=== PATIENT | male | born 1945 | race Caucasian/White ===

== ENCOUNTER 2024-01-24 07:16 | Observation (INO) | payer MEDICARE, SELFPAY ==
[2024-01-24] VITALS (26 sets, daily range): BP systolic 96–129; BP diastolic 51–79; PULSE 49–72; RESP 11–21; TEMP 36.6–36.9; O2SAT 63–99; BMI 23.4
--- NOTE | ~2024-01-24 | US_ITS ---
EXAMINATION: US carotid duplex BI DATE: 01/24/2024 11:41 INDICATION: Syncope. TECHNIQUE: Grayscale, color Doppler, and pulsed Doppler images of the cervical carotid arteries were obtained. The degree of vessel stenosis is placed in one of the following categories: normal, <50%, 5 0-69%, >=70% but less than near-occlusion, near-occlusion, or total occlusion. Note that percent sten osis relative to normal distal artery lumen diameter is indirectly measured from velocity measurement s as described by Andrew, et al. Radiology 2003; 229:340-346. COMPARISON: None. FINDINGS: RIGHT: The right common carotid artery (CCA) peak systolic velocity (PSV) is 106 cm/s. The right internal ca rotid artery (ICA) PSV is 62 cm/s. The right ICA end-diastolic velocity (EDV) is 8 cm/s. The right IC A/CCA PSV ratio is 0.6. Grayscale and color Doppler images yield an estimate of <50% diameter reducti on from plaque in the ICA. There is antegrade flow in the right vertebral artery. LEFT: The left CCA PSV is 58 cm/s. The left ICA PSV is 65 cm/s. The left ICA EDV is 17 cm/s. The left ICA/C CA PSV ratio is 1.1. Grayscale and color Doppler images yield an estimate of <50% diameter reduction from plaque in the ICA. There is antegrade flow in the left vertebral artery. IMPRESSION: 1. <50% stenosis in the right internal carotid artery. 2. <50% stenosis in the left internal carotid artery. Reviewed, dictated and finalized at location A.
--- NOTE | ~2024-01-24 | CT_ITS ---
CT head without contrast Indication: Status post fall Technique: Serial scans were obtained through the brain without the administration of contrast. Dose reduction technique was used on this scan by utilizing automated exposure control and iterative recon struction technique. The dose-length product (DLP) was 605.33 mGy-cm. Findings: There is no evidence of intracranial hemorrhage, mass lesion, or acute infarct. The ventri cles and subarachnoid spaces are dilated, consistent with mild atrophy. Chronic posterior right parie lana lobe infarct noted. There is no evidence of edema, mass effect or midline shift. The visualized paranasal sinuses and mastoid air cells are clear. Impression: No intracranial hemorrhage, mass, or acute infarct. Chronic posterior right parietal lobe infarct. Mild generalized atrophy. Reviewed, dictated and finalized at location . Impression: No intracranial hemorrhage, mass, or acute infarct. Chronic posterior right parietal lobe infarct. Mild generalized atrophy.
--- NOTE | ~2024-01-24 | CT_ITS ---
Noncontrast CT scan of the cervical spine Technique: Multiple contiguous axial [address] images of the cervical spine were obtained and rec onstructed in 2D sagittal and coronal planes on the acquisition scanner. Dose reduction technique was used on this scan by utilizing automated exposure control, adjustment of the mA and/or kV according to patient size. The dose-length product (DLP) was 229.17 mGy-cm. Clinical History: Pain Findings: No fractures or dislocations. There is straightening of normal cervical lordosis. There is moderate to advanced degenerative disc change throughout the cervical spine, especially at C5-C6 and C6-C7. There is disc osteophyte complex at C5-C6 with probable mild to possibly moderate canal steno sis. There is mild bilateral neural foraminal narrowing at this level. There is disc osteophyte compl ex at C6-C7 with moderate canal stenosis and bilateral neural foraminal narrowing. Advanced emphysema noted at the lung apices. No prevertebral soft tissue swelling. Impression: No fracture or subluxation of the cervical spine. Advanced degenerative spondylosis, as above, especially at C5-C6 and C6-C7. Reviewed, dictated and finalized at [facility]. Impression: No fracture or subluxation of the cervical spine. Advanced degenerative spondylosis, as above, especially at C5-C6 and C6-C7.
--- NOTE | 2024-01-24 07:20 | ECG_ITS ---
[facility] [address] Test Date: 2024-01-24 Pat Name: Mati Wyatt Department: Room: Gender: M Staff Trainer: MILDRED : 1945 Requested By: Jah Muñoz Order Number: [id number] Antonio MD: Amrita Walker M.D. Measurements Intervals [place] Rate: 48 P: 25 W[place]: 174 QRS: 97 QRSD: 137 T: 52 QT: 487 QTc: 438 Interpretive Statements SINUS BRADYCARDIA RIGHT BUNDLE BRANCH BLOCK [120+ ms QRS DURATION, UPRIGHT V1, 40+ ms S IN I/aVL/V4/V5/V6] No previous ECG available for comparison Electronically Signed On 01-24-2024 13:43:14 CDT by Amrita Walker M.D.
[2024-01-24 07:37] LABS: Basophils Absolute Auto 0.1 K/mm3 (0.0-0.1); Basophils Percent Auto 0.9 % (0.2-1.2); Eosinophils Absolute Auto 0.2 K/mm3 (0-0.3); Eosinophils Percent Auto 4.3 % (0-4.4); Hematocrit 41.4 % (42.0-52.0); Immature Granulocyte Absolute 0.03 K/mm3 (0.00-0.031); Immature Granulocyte Percent A 0.5 % (0-0.5); Lymphocytes Absolute Auto 1.17 K/mm3 (0.9-3.2); Lymphocytes Percent Auto 20.9 % (18.3-44.2); Mean Corpuscular HGB Conc 31.4 g/dl (32-36); Mean Corpuscular Hemoglobin 33.7 pg (26-34); Mean Corpuscular Volume 107.3 fl (80-100); Mean Platelet Volume 9.3 fl (7.4-10.4); Monocytes Absolute Auto 0.8 K/mm3 (0.1-0.6); Neutrophils Absolute Auto 3.3 K/mm3 (1.3-6.7); Neutrophils Percent Auto 58.4 % (45.5-73.1); Platelet Count Result 208 k/mm3 (150-375); Red Blood Count 3.86 M/mm3 (4.6-6.20); Red Cell Distribution Width 13.2 % (11.5-14.5); White Blood Count 5.6 K/mm3 (4.5-10.0)
--- NOTE | 2024-01-24 07:38 | ED.SYNCOPE ---
HPI - Syncope General Chief Complaint: Syncope Stated Complaint: fall, head injury, syncope Time Seen by Provider: 01/24/24 07:35 History of Present Illness HPI narrative: Pt had two syncopal episodes this morning when he stood up. First time the patient fell and hit head and sustained a laceration to the back of his head. Pt denies RASHEED or neck pain. Pt has been eating and drinking and denies melena or bloody stools. Pt has been on chemo and radiation now just chemo for Related Data Home Medications Medication Instructions Recorded Confirmed lisinopril 10 mg tablet 10 mg PO 1800 09/12/19 01/24/24 paroxetine HCl 10 mg tablet 10 mg PO 1800 09/12/19 01/24/24 pravastatin 80 mg tablet 80 mg PO 1800 09/12/19 01/24/24 rivaroxaban 20 mg tablet (Xarelto) 20 mg PO 1800 09/12/19 01/24/24 B12 1,000 mg [facility] 1XD 10/30/23 01/24/24 D3 1,[address] [facility] 1XD 10/30/23 01/24/24 donepezil 5 mg tablet 5 mg PO QHS 10/30/23 01/24/24 omega-3 900 mg-dha 360 mg-epa 455 1 cap PO 1800 10/30/23 01/24/24 mg-fish oil 1,000 mg capsule (Fish Oil) Allergies Allergy/AdvReac Type Severity Reaction Status Date / Time No Known Allergies Allergy Mild Verified 01/24/24 10:37 Review of Systems Review of Systems: All systems reviewed & are unremarkable except as noted in HPI and below PMFSH Past Medical History Medical History (Updated 01/24/24 @ 09:51 by Harmony Arteaga MD) Cancer of right lung CKD (chronic kidney disease) COPD (chronic obstructive pulmonary disease) Dementia History of blood clots Hyperlipidemia Hypertension Hypothyroidism Pulmonary embolus Throat cancer TIA (transient ischemic attack) Surgical History Surgical History (Updated 10/30/23 @ 10:15 by Frida Abarca MA) History of eye surgery Hx of tonsillectomy Total knee replacement status Family History Family History (Updated 10/30/23 @ 10:02 by Frida Abarca MA) Sibling Carcinoma of colon Social History Social History (Updated 10/30/23 @ 10:19 by JOSSY Driscoll Smoking packs per day: 1 Smoking cigarettes per day: 20.0 Years smoked: 15 Smoking pack-years: 15.00 Smoking status: Former smoker Alcohol intake: never Substance use: current Substance use type: marijuana Other substance usage details: relaxation - pain control - is working Last use: daily Do You Feel Safe in your Home?: Yes Lack of Transportation: No Lack of Food: Never True Current Housing: I Have Housing Concerned About Future Housing: No Difficulty Paying Gas/Electric Bills: No Difficulty Paying for Meds: No Currently Unemployed: No Education: Bachelor's Degree Living arrangements: with family Occupation/Education: retired Gender identity (if verbalized by the patient): Male Sexual Orientation (if Verbalized by the Patient): Straight or Heterosexual Exam Const: General: healthy appearing and no acute distress Nutritional Appearance: thin Orientation/consciousness: patient oriented x3 Limitations: no limitations HENMT: Head: laceration (posterior scalp 7 cm) Neck: Neck: normal visual inspection and no meningeal signs Resp: Effort & Inspection: normal respiratory effort Auscultation: clear to auscultation bilaterally Cardio: Rate: regular rate Rhythm: regular rhythm GI: GI Palp: Yes Soft to palpation and No Tenderness to palpation present (GI) Auscultation: normal bowel sounds Skin: General skin exam: normal color Rashes: no rashes Wounds: no wounds Neuro: General: patient oriented x3, moves all extremities, no meningeal signs and no focal motor deficits Cranial nerves: Yes Nystagmus not present Speech: normal speech Extrem: General: normal to inspection and no clubbing, cyanosis or edema Psych: Mental Status: mental status grossly normal Affect: normal affect Attitude: cooperative Course Vital Signs Vital signs: Vital Signs Temperature 98.4 F 01/24/24 07:15 Temperature 98.4 F 06/0
[2024-01-24 07:43] LABS: Alanine Aminotransferase 13 U/L (6-50); Albumin Level 3.8 g/dL (3.5-5.1); Alkaline Phosphatase 86 U/L (38-126); Anion Gap 6 mmol/L (4-12); Aspartate Amino Transferase 19 U/L (17-59); Bilirubin,Total 0.8 mg/dL (0.2-1.3); Blood Urea Nitrogen 29 mg/dL (9-20); Calcium 9.4 mg/dL (8.4-10.2); Carbon Dioxide 29 mmol/L (22-30); Chloride 100 mmol/L (98-107); Estimated CRCL calculation 37 ml/min; Estimated Glomerular Filt Rate 46; Glucose 149 mg/dL (65-110); Potassium 3.6 mmol/L (3.4-5.0); Sodium 135 mmol/L (137-145)
[2024-01-24 07:58] LABS: Anisocytosis 1+; Platelet Estimate Adequate (Adequate); Poikilocytosis 1+; Schistocytes None Seen
[2024-01-24] MEDS: TETANUS,DIPHTHERIA,AC PERTUSSIS ADULT (0.5 ML) BOOSTRIX IM (08:05)
[2024-01-24] MEDS: SODIUM CHLORIDE 0.9% IV 1,000 ML 999 ML IV CONT (08:06)
--- NOTE | 2024-01-24 09:41 | PM.IMHP ---
H&P: HPI History of Present Illness Date/Time: 01/24/24 09:41 Chief Complaint: SYNCOPE Narrative: 78 years old gentleman with history of hypertension, hyperlipidemia, PE, hypothyroidism, COPD, CKD, lung cancer, brought to ED because of syncope. In the morning, patient stood up, patient felt dizzy and lost consciousness. Patient fell on floor, hit his head, sustained scalp laceration back off his head. Patient had chemo radiotherapy for lung cancer about a year ago. patient denied nausea vomiting diarrhea dysuria, Fever. chills.Upon arrival in ED, patient was afebrile, pulse ox 96 on room air, blood pressure stable, CBC showed mild anemia hemoglobin 13, chemistry shows elevated BUN creatinine 29/1.5, no known recent baseline CT head shows no intracranial hemorrhage, mass, acute infarct. Patient received fluid resuscitation in the ED. Admit patient for further evaluation treatment Review of Systems Review of Systems: ROS negative except above PMFSH Past Medical History Medical History (Updated 01/24/24 @ 09:51 by Harmony Arteaga MD) Cancer of right lung CKD (chronic kidney disease) COPD (chronic obstructive pulmonary disease) Dementia History of blood clots Hyperlipidemia Hypertension Hypothyroidism Pulmonary embolus Throat cancer TIA (transient ischemic attack) Surgical History Surgical History (Updated 10/30/23 @ 10:15 by Frida Abarca MA) History of eye surgery Hx of tonsillectomy Total knee replacement status Family History Family History (Updated 10/30/23 @ 10:02 by Frida Abarca MA) Sibling Carcinoma of colon Social History Social History (Updated 10/30/23 @ 10:19 by Frida Abarca MA) Smoking packs per day: 1 Smoking cigarettes per day: 20.0 Years smoked: 15 Smoking pack-years: 15.00 Smoking status: Former smoker Alcohol intake: never Substance use: current Substance use type: marijuana Other substance usage details: relaxation - pain control - is working Last use: daily Do You Feel Safe in your Home?: Yes Lack of Transportation: No Lack of Food: Never True Current Housing: I Have Housing Concerned About Future Housing: No Difficulty Paying Gas/Electric Bills: No Difficulty Paying for Meds: No Currently Unemployed: No Education: Bachelor's Degree Difficulty w/ Childcare or Family Care: No Living arrangements: with family Occupation/Education: retired Gender identity (if verbalized by the patient): Male Sexual Orientation (if Verbalized by the Patient): Straight or Heterosexual Spiritual care concerns: No Meds Home Medications and Allergies Home Medications Medication Instructions Recorded Confirmed Type lisinopril 10 mg tablet 10 mg PO 179909/12/19 01/24/24 History paroxetine HCl 10 mg tablet 10 mg PO 1800 09/12/19 01/24/24 History pravastatin 80 mg tablet 80 mg PO 1800 09/12/19 01/24/24 History rivaroxaban 20 mg tablet (Xarelto) 20 mg PO 1800 09/12/19 01/24/24 History B12 1,000 mg [facility] 1XD 10/30/23 01/24/24 History D3 1,000 mcg [facility] 1XD 10/30/23 01/24/24 History donepezil 5 mg tablet 5 mg PO QHS 10/30/23 01/24/24 History omega-3 900 mg-dha 360 mg-epa 455 1 cap PO 1800 10/30/23 01/24/24 History mg-fish oil 1,000 mg capsule (Fish Oil) levothyroxine 50 mcg tablet 50 mcg PO DAILY #90 tabs 01/04/24 01/24/24 Rx Allergies Allergy/AdvReac Type Severity Reaction Status Date / Time No Known Allergies Allergy Mild Verified 01/24/24 10:37 Vital Signs Vital Signs - 24 hr 01/24/24 07:15 01/24/24 07:26 01/24/24 09:04 Temperature 98.4 F Pulse Rate 60 58 L Respiratory Rate 16 16 Blood Pressure 99/51 L 114/61 Pulse Oximetry 96 96 01/24/24 07:20 01/24/24 07:21 01/24/24 07:30 Temperature Pulse Rate 67 72 56 L Respiratory Rate 16 11 L 20 Blood Pressure 99/51 L Pulse Oximetry 63 L 99 82 L 01/24/24 07:31 01/24/24 07:51 01/24/24 08:00 Temperature Pulse Rate 51 L 52
--- NOTE | 2024-01-24 09:58 | ECHO_ITS ---
Patient Info Name: Mati Wyatt Age: 78 years : 1945 Gender: Male Ht: 68 in Wt: 154 lbs BSA: 1.84 m2 HR: 54 bpm BP: 110 / 64 mmHg Heart Rhythm: Sinus Rhythm Technical Quality: Poor Exam Date: 01/24/2024 4:13 PM Exam Location: Echo Lab Patient Status: Inpatient Admit Date: 01/24/2024 Staff Ordering Physician: Harmony Arteaga MD Supervisor Blood Donor Recruiters: Jeferson Lorenzo RDCS Attending Provider: Harmony Arteaga MD Exam Type: CA echo dop color flow w con Study Info Indications R55 - Syncope and collapse Complete two-dimensional, color flow and Doppler transthoracic echocardiogram is performed with contrast to opacify the left ventricle and to improve the deliniation of the left ventricle endocardial borders. Contrast/Agitated Saline Contrast/Ag. Saline: Definity Amount: 2.00 ml Summary 1. Trivial amount of aortic valve regurgitation. 2. Otherwise unremarkable echocardiogram. Left Ventricle Left ventricular chamber dimension is normal. Left ventricular systolic function is normal, estimated at 55-60%. The left ventricular diastolic function is normal. Right Ventricle Right ventricular chamber dimension is normal. Left Atria Left atrial chamber dimension is normal. Right Atria Right atrial chamber dimension is normal. Aortic Valve The aortic valve is normal. There is trace aortic valve regurgitation. Pulmonic Valve The pulmonic valve is not well visualized. Mitral Valve The mitral valve has normal leaflets. Tricuspid Valve The tricuspid valve leaflets are normal. Pericardium/Pleural The pericardium appears normal. Aorta The aortic root size at the sinus of Valsalva is normal. Left Ventricular Outflow Tract Name Value Normal LVOT 2D LVOT Diameter 2.03 cm LVOT Doppler LVOT Peak Gradient 3 mmHg LVOT Mean Gradient 1 mmHg LVOT VTI 20.58 cm LVOT VTI/AV VTI Ratio 0.97 LVOT Stroke Volume 66.58 ml LVOT CO 3.26 l/min LVOT CI 1.78 L/min/m2 Pulmonic Valve Name Value Normal RVOT Doppler RVOT Peak Gradient 1 mmHg PV Doppler PV Peak Gradient 2 mmHg Mitral Valve Name Value Normal MV Doppler MV Decel Wake 315.05 cm/s2 MV PHT 0 s MV Area (PHT) 4.15 cm2 4.00-5.00 MV Diastolic Function
[2024-01-24] MEDS: SODIUM CHLORIDE 0.9% IV 1,000 ML 125 ML IV CONT ×2 (12:19→22:15)
[2024-01-24 13:01] LABS: Troponin I < 0.012 ng/mL (0.000-0.034)
[2024-01-24] MEDS: HYDROcodone/acetaminophen (*CRX) 5-325 MG TABLET 1 TAB PO ×2 (15:26→19:55)
[2024-01-24 16:05] LABS: Troponin I < 0.012 ng/mL (0.000-0.034)
[2024-01-24] MEDS: PERFLUTREN LIPID MICROSPHERES 1.5 ML VIAL DILUTED TO 10 ML TOTAL VOLUME IV PUSH (17:14)
--- NOTE | 2024-01-24 17:14 | IVDEFINITY ---
Prior to administration of IV Definity the patient was educated on the risks and benefits of the imaging enhancing agent including potential adverse side effects. The patient verbalized understanding. Allergies were verified. No exclusion criteria were identified and at least one of the following inclusion criteria were met: 1) physician request, 2) patient technically difficult to image (per the [place] [employer] Echocardi[employer] guidelines of two or more segments not discernable within the apical view), or 3) questionable left ventricular function. ?
[2024-01-25] VITALS (9 sets, daily range): BP systolic 105–136; BP diastolic 65–74; PULSE 53–64; RESP 18; TEMP 36.4–36.5; O2SAT 95–96
[2024-01-25] MEDS: SODIUM CHLORIDE 0.9% IV 1,000 ML 125 ML IV CONT (06:20)
--- NOTE | 2024-01-25 08:45 | PM.IMPN ---
Progress Note: A&P Assessment and Plan (1) Syncope and collapse: Code(s): R55 - Syncope and collapse Status: Acute (2) Laceration of scalp: Code(s): S01.01XA - Laceration without foreign body of scalp, initial encounter Status: Acute (3) Acute renal failure: Code(s): N17.9 - Acute kidney failure, unspecified Status: Acute (4) Cancer of right lung: Code(s): C34.91 - Malignant neoplasm of unspecified part of right bronchus or lung Status: Acute (5) Hyperlipidemia: Qualifiers: Hyperlipidemia type: mixed hyperlipidemia Qualified Code(s): E78.2 - Mixed hyperlipidemia Code(s): E78.5 - Hyperlipidemia, unspecified Status: Acute (6) Hypothyroidism: Qualifiers: Hypothyroidism type: unspecified Qualified Code(s): E03.9 - Hypothyroidism, unspecified Code(s): E03.9 - Hypothyroidism, unspecified Status: Acute (7) Dementia: Qualifiers: Dementia behavioral or psychological symptom: with agitation Dementia severity: moderate Dementia type: unspecified type Qualified Code(s): F03.B11 - Unspecified dementia, moderate, with agitation Code(s): F03.90 - Unspecified dementia, unspecified severity, without behavioral disturbance, psychotic disturbance, mood disturbance, and anxiety Status: Acute (8) COPD (chronic obstructive pulmonary disease): Qualifiers: COPD type: unspecified COPD Qualified Code(s): J44.9 - Chronic obstructive pulmonary disease, unspecified Code(s): J44.9 - Chronic obstructive pulmonary disease, unspecified Status: Acute (9) History of peanut allergy: Code(s): Z91.010 - Allergy to peanuts Status: Acute Plan syncope Unclear etiologies Patient stood up and felt dizzy and lost consciousness, possible vasovagal syncope, orthostatic hypotension, dehydration CT of head shows no acute intracranial issues Neuro check fall precaution Patient received fluid resuscitation follow-up orthostatic test normal, echocardiogram unremarkable, no significant stenosis on carotid Doppler, no significant arrhythmia on telemetry monitoring Scalp laceration Bleeding stops by matthew consult wound care hypertension Blood pressure on the lower side hold hypertension medications blood pressure stable History of PE Hold Xarelto today, patient has skin laceration hold during hospitalization No active bleeding, resume Xarelto on discharge lung cancer Follow-up with heme oncologist outpatient hyperlipidemia Continue Lipitor 80 mg daily p.o. patient's repeat discharged home today Subjective Date/time seen: 01/25/24 08:45 Interval history: I saw and examined patient today. Patient feels comfortable, denies dizziness, chest pain, palpitation, headache, focal weakness, vision change. Patient is afebrile, blood pressure stable, echocardiogram unremarkable. Exam Narrative: GENERAL: Pleasant, in no acute distress. Well-nourished. - EYES: EOMI. Anicteric. - HENT: Moist mucous membranes. - LUNGS: Clear to auscultation bilaterally, no wheezing, rhonchi, or rales. - CARDIOVASCULAR: Regular rate and rhythm. No murmur. No JVD. - ABDOMEN: Soft, non-tender and non-distended. No palpable masses. - EXTREMITIES: No edema. Peripheral pulses 2+. Non-tender. - NEUROLOGIC: No focal neurological deficits. CN II-XII grossly intact. - PSYCHIATRIC: Awake, Alert and oriented x 3. Appropriate mood and affect. - SKIN: No rashes or lesions. Warm. - LYMPH: No cervical lymphadenopathy. Objective Data Vital Signs Vital Signs: Vital Signs - 24 hr 01/24/24 09:04 01/24/24 09:00 01/24/24 09:05 Temperature Pulse Rate 58 L 53 L 53 L Respiratory Rate 16 21 H 13 Blood Pressure 114/61 114/61 Pulse Oximetry 96 94 95 Oxygen Delivery Fraction of Inspired Oxygen 01/24/24 09:15 01/24/24 09:30 01/24/24 09:31 Temperature Pulse
[2024-01-25 09:49] LABS: Basophils Absolute Auto 0.1 K/mm3 (0.0-0.1); Basophils Percent Auto 1.2 % (0.2-1.2); Eosinophils Absolute Auto 0.3 K/mm3 (0-0.3); Eosinophils Percent Auto 6.9 % (0-4.4); Hematocrit 40.8 % (42.0-52.0); Hemoglobin 13.2 g/dL (14.0-18.0); Immature Granulocyte Absolute 0.02 K/mm3 (0.00-0.031); Immature Granulocyte Percent A 0.5 % (0-0.5); Lymphocytes Absolute Auto 0.72 K/mm3 (0.9-3.2); Lymphocytes Percent Auto 17.2 % (18.3-44.2); Mean Corpuscular HGB Conc 32.4 g/dl (32-36); Mean Corpuscular Hemoglobin 33.9 pg (26-34); Mean Corpuscular Volume 104.9 fl (80-100); Mean Platelet Volume 9.7 fl (7.4-10.4); Monocytes Absolute Auto 0.5 K/mm3 (0.1-0.6); Neutrophils Absolute Auto 2.7 K/mm3 (1.3-6.7); Neutrophils Percent Auto 63.2 % (45.5-73.1); Platelet Count Result 179 k/mm3 (150-375); Red Blood Count 3.89 M/mm3 (4.6-6.20); Red Cell Distribution Width 13.2 % (11.5-14.5); White Blood Count 4.2 K/mm3 (4.5-10.0)
[2024-01-25 10:01] LABS: Anion Gap 3 mmol/L (4-12); Blood Urea Nitrogen 22 mg/dL (9-20); Carbon Dioxide 27 mmol/L (22-30); Chloride 109 mmol/L (98-107); Estimated CRCL calculation 42 ml/min; Estimated Glomerular Filt Rate 54; Glucose 84 mg/dL (65-110); Sodium 139 mmol/L (137-145)
--- NOTE | 2024-01-25 14:59 | PM.DS ---
DS: Admitting Diagnosis Discharge Date 01/24 Admitting Diagnosis (1) Syncope and collapse: Code(s): R55 - Syncope and collapse Status: Acute (2) Laceration of scalp: Code(s): S01.01XA - Laceration without foreign body of scalp, initial encounter Status: Acute (3) Acute renal failure: Code(s): N17.9 - Acute kidney failure, unspecified Status: Acute (4) Cancer of right lung: Code(s): C34.91 - Malignant neoplasm of unspecified part of right bronchus or lung Status: Acute (5) Hyperlipidemia: Qualifiers: Hyperlipidemia type: mixed hyperlipidemia Qualified Code(s): E78.2 - Mixed hyperlipidemia Code(s): E78.5 - Hyperlipidemia, unspecified Status: Acute (6) Hypothyroidism: DS: Discharge Diagnosis Discharge Diagnosis (1) Syncope and collapse: Code(s): R55 - Syncope and collapse Status: Acute (2) Laceration of scalp: Code(s): S01.01XA - Laceration without foreign body of scalp, initial encounter Status: Acute (3) Acute renal failure: Code(s): N17.9 - Acute kidney failure, unspecified Status: Acute (4) Cancer of right lung: Code(s): C34.91 - Malignant neoplasm of unspecified part of right bronchus or lung Status: Acute (5) Hyperlipidemia: Qualifiers: Hyperlipidemia type: mixed hyperlipidemia Qualified Code(s): E78.2 - Mixed hyperlipidemia Code(s): E78.5 - Hyperlipidemia, unspecified Status: Acute (6) Hypothyroidism: Qualifiers: Hypothyroidism type: unspecified Qualified Code(s): E03.9 - Hypothyroidism, unspecified Code(s): E03.9 - Hypothyroidism, unspecified Status: Acute (7) Dementia: Qualifiers: Dementia behavioral or psychological symptom: with agitation Dementia severity: moderate Dementia type: unspecified type Qualified Code(s): F03.B11 - Unspecified dementia, moderate, with agitation Code(s): F03.90 - Unspecified dementia, unspecified severity, without behavioral disturbance, psychotic disturbance, mood disturbance, and anxiety Status: Acute (8) COPD (chronic obstructive pulmonary disease): Qualifiers: COPD type: unspecified COPD Qualified Code(s): J44.9 - Chronic obstructive pulmonary disease, unspecified Code(s): J44.9 - Chronic obstructive pulmonary disease, unspecified Status: Acute (9) History of peanut allergy: Code(s): Z91.010 - Allergy to peanuts Status: Acute DS: Summary Hospital Course Hospital Course: 78 years old gentleman with history of hypertension, hyperlipidemia, PE, hypothyroidism, COPD, CKD, lung cancer, brought to ED because of syncope. In the morning, patient stood up, patient felt dizzy and lost consciousness. Patient fell on floor, hit his head, sustained scalp laceration back off his head. Patient had chemo radiotherapy for lung cancer about a year ago. patient denied nausea vomiting diarrhea dysuria, Fever. chills.Upon arrival in ED, patient was afebrile, pulse ox 96 on room air, blood pressure stable, CBC showed mild anemia hemoglobin 13, chemistry shows elevated BUN creatinine 29/1.5, no known recent baseline CT head shows no intracranial hemorrhage, mass, acute infarct. Patient received fluid resuscitation in the ED. Admit patient for further evaluation treatment the following med issues have been addressed during hospitalization syncope Unclear etiologies Patient stood up and felt dizzy and lost consciousness, possible vasovagal syncope, orthostatic hypotension, dehydration CT of head shows no acute intracranial issues Neuro check fall precaution Patient received fluid resuscitation follow-up orthostatic test normal, echocardiogram unremarkable, no significant stenosis on carotid Doppler, no significant arrhythmia on telemetry monitoring now patient has no dizziness, focal weakness, Scalp laceration Bleedi
== END 2024-01-25 16:04 | disposition home or self-care (01) ==
LOC: ANHED 09:12 → ANH3MED 11:02
PROVIDERS: Admitting Provider Hospitalist; Emergency Provider Emergency Medicine; PCP Nurse Practitioner Family; Visit Provider Hospitalist
DX: S01.01XA Laceration without foreign body of scalp, initial encounter (principal); N17.9 Acute kidney failure, unspecified; R55 Syncope and collapse; W18.39XA Other fall on same level, initial encounter; I12.9 Hypertensive chronic kidney disease with stage 1 through stage 4 chronic kidney disease, or unspecified chronic kidney disease; N18.9 Chronic kidney disease, unspecified; C34.91 Malignant neoplasm of unspecified part of right bronchus or lung; J44.9 Chronic obstructive pulmonary disease, unspecified; F03.B11 Unspecified dementia, moderate, with agitation; E78.5 Hyperlipidemia, unspecified; E03.9 Hypothyroidism, unspecified; I65.23 Occlusion and stenosis of bilateral carotid arteries; Z79.01 Long term (current) use of anticoagulants; Z79.899 Other long term (current) drug therapy; Z86.73 Personal history of transient ischemic attack (TIA), and cerebral infarction without residual deficits; Z86.711 Personal history of pulmonary embolism; Z85.819 Personal history of malignant neoplasm of unspecified site of lip, oral cavity, and pharynx; F12.90 Cannabis use, unspecified, uncomplicated; Z87.891 Personal history of nicotine dependence; Z91.010 Allergy to peanuts; Z23 Encounter for immunization
CPT/HCPCS: 12002; 36415; 70450; 72125; 80048; 80053; 84484; 85025; 90471; 90715; 93005; 93880; 96361; 96374; 99285; A9270; C8929; G0378; J7030; Q9957